=== PATIENT | male | born 1975 | race American Indian/Alaskan Native ===

== ENCOUNTER 2025-06-02 15:46 | Emergency (ER) | payer MEDICAID, OTHER ==
[2025-06-02 16:07] VITALS: BP 171/101; PULSE 82
== END 2025-06-02 16:54 | disposition home or self-care (01) ==
LOC: DL.ED 15:46 → EEVIPCON 15:46 → DL.ED 16:54
DX: M79.671 Pain in right foot (principal); I10 Essential (primary) hypertension; Z79.899 Other long term (current) drug therapy
CPT/HCPCS: 73630; 99282; 99283; A9270